=== PATIENT | male | born 1995 | race Caucasian/White ===

== ENCOUNTER 2022-08-01 11:58 | Emergency (ER) | payer OTHER ==
[~2022-08-01] VITALS: Ht 180.3 cm; Wt 59.0 kg
--- NOTE | 2022-08-01 12:26 | ED Lower Extremity ---
General Chief Complaint: Lower Extremity Stated Complaint: LT KNEE INJ Source: patient History of Present Illness Date Seen by Provider: Aug 01, 2022 Time Seen by Provider: 12:02 Initial Comments 27-year-old male presenting under custody with . He had been using methamphetamines and then ran from the [employer] today. He states he has left knee pain and has multiple abrasions to his knee. He reports that his knee was injured with being chased by the [employer] and was trying to escape being arrested. He reports using meth in the last 24 hours. He was to go to [place] to get into rehab this week but chose to use methamphetamines instead of going to rehab. He is now tearful and saying that he feels like he needs to go to rehab or psychiatric hospital to get his medications straightened out and help him get off meth and he thinks this will help him more than going to detention. He denies suicidal or homicidal ideation. Onset: just prior to arrival Severity: severe Pain/Injury Location: left knee (Pain and contusion with abrasions) Method of Injury: fell Modifying Factors: Worse With Movement Allergies and Home Medications Allergies Coded Allergies: No Known Drug Allergies (Unverified , 08/01/22) Patient Home Medication List Home Medication List Reviewed: Yes Review of Systems Constitutional: No chills, No fever EENTM: no symptoms reported Respiratory: no symptoms reported Cardiovascular: no symptoms reported Gastrointestinal: no symptoms reported Genitourinary: no symptoms reported Musculoskeletal: see HPI, joint pain (Left knee pain since falling on it while running from law enforcement) Skin: see HPI Psychiatric/Neurological: Anxiety Past Uudkvcj-Obtago-Fanbxm Hx Patient Social History Tobacco Use?: Yes Smoking Status: Current Everyday Smoker Substance use?: Yes Substance type: Methamphetamine Additional substance use comme: Last reported use 07/31/22 Substance frequency: Couple times a week Alcohol Use?: No Pt feels they are or have been: No Immunizations Up To Date First/Initial COVID19 Vaccinat: Yes COVID19 Vaccine [employer]: [employer] Past Medical History Surgery/Hospitalization HX: Substance abuse; Bipolar; ADHD; ODD Physical Exam Vital Signs Vital Signs - First Documented 08/01/22 12:02 Temp 36.4 Pulse 122 Resp 14 B/P (MAP) 126/78 (94) Pulse Ox 97 O2 Delivery Room Air Capillary Refill : Height, Weight, BMI Height: '" Weight: lbs. oz. kg; BMI Method: General Appearance: other (Patient is disheveled and starts to cry when he talks about needing to be admitted to [facility] rather than go to detention.) HEENT: PERRL/EOMI, pharynx normal Neck: non-tender, full range of motion, supple, normal inspection Cardiovascular: normal peripheral pulses, regular rate, rhythm Respiratory: chest non-tender, lungs clear, normal breath sounds Gastrointestinal: normal bowel sounds, non tender, soft, no pulsatile mass Knees: left knee pain, left knee soft tissue tenderness, left knee other (Multiple abrasions and 1 flap laceration to the left knee. He complains of pain with palpation and movement of the knee. Knee joint itself is stable without laxity or crepitus) Neurologic/Tendon: normal sensation, normal motor functions, normal tendon functions Neurologic/Psychiatric: keysmith II-XII nml as tested, alert, oriented x 3 Skin: warm/dry, other (Multiple superficial abrasions to the left knee and 1 flap laceration that is a total of 1.8 cm) Procedures/Interventions Wound Location: Lower Extremities (Left knee) Wound Length (cm): 1.8 Wound's Depth, Shape: flap, sub Q Wound Explored: contaminated Irrigated w/ Saline (ccs): 100 Betadine Prep?: No (Used chlorhexidine scrub soap) Anesthesia: 1% Lidocaine Volume Anesthetic (ccs): 4 Suture: Ethlion Suture Size: 4-0 Number of Sutures: 4 Layer Closure?: 1 Sterile Dressing Applied?: Yes Progress After obtaining verbal consent from the patient the wound was cleaned with chlorhexidine scrub soap and water. 4 mL of 1% plain lidocaine were infiltrated for anesthetic effect. The wound was further scrubbed to evaluate for foreign bodies in the wound. No foreign bodies were seen. Wound edges were then approximated using 4-0 Ethilon. A total of 4 simple interrupted stitches were placed and the wound edges were well approximated. Counseled on follow-up and return precautions and advised to have the stitches out in 10 to 14 days. Progress/Results/Core Measures Results/Orders My Orders Orders - KHADIJAH GARCIA MD Dipht,Candace(Acell),Tet Adult (Boostrix (08/01/22 12:30) Knee 3 View Left (08/01/22 12:22) Suture Set At Bedside (08/01/22 12:22) Ibuprofen Tablet (Motrin Tablet) (08/01/22 12:57) Wound Dressing-Ed (08/01/22 12:57) Medications Given in ED Current Medications Medications Dose Ordered Sig/Mago Route Start Time Stop Time Status Last Admin Dose Admin Diphtheria/ Tetanus/Acell Pertussis 0.5 ml ONCE ONCE IM 08/01/22 12:30 08/01/22 12:31 DC 08/01/22 13:06 0.5 ML Vital Signs/I&O 08/01/22 08/01/22 12:02 13:12 Temp 36.4 36.4 Pulse 122 122 Resp 14 14 B/P (MAP) 126/78 (94) 126/78 Pulse Ox 97 97 O2 Delivery Room Air Room Air Progress Progress Note #1: Progress Note X-ray of the left knee was ordered since he was complaining of pain. Update his tetanus booster. Cleaning and repair the flap laceration to his left knee Progress Note #2: Progress Note X-rays did not demonstrate any acute fracture or dislocation. The laceration was repaired using 4-0 Ethilon a total of 4 simple interrupted stitches. His tetanus booster was updated. Advised to follow-up with mental health through the detention and law enforcement to see about getting help with his medications and rehab from [facility]. Diagnostic Imaging Diagonstic Imaging: Xray Plain Films/CT/US/NM/MRI: knee Comments NAME: [facility] REC#: [id number] PT STATUS: REG ER : 1995 PHYSICIAN: KHADIJAH GARCIA MD ADMIT DATE: 08/01/22/ER FS Signed Date of Exam:08/01/22 KNEE 3 VIEW LEFT Indication: Left knee pain 3 views of the left knee show no fracture, dislocation or pathologic effusion. IMPRESSION: Negative left knee Dictated by: Dictated on workstation # [id number] Dict: 08/01/22 1246 Trans: 08/01/22 1246 TCB [id number] Interpreted by: TYRA MARTINEZ MD Electronically signed by: TYRA MARTINEZ MD 08/01/22 1246 Reviewed: Reviewed by Me Departure Impression Primary Impression: Laceration without foreign body, left knee, initial encounter Additional Impressions: Contusion of left knee, initial encounter Abrasion, left knee, initial encounter Methamphetamine abuse Disposition: HOME, SELF-CARE Condition: Stable Departure-Patient Inst. Decision time for Depature: 12:56 Referrals: [facility] (PCP/Family) Primary Care Physician Patient Instructions: Laceration Repair With Stitches ED, Abrasions ED, Drug Abuse Treatment Add. Discharge Instructions: Medically clear and stable to go with law enforcement to detention. Keep wound clean and dry for the first 24 hours. After that you may apply antibiotic ointment once or twice a day as needed to help prevent infection. The stitches need to be removed in 10 to 14 days. Consider taking Ibuprofen 600 mg every 8 hours as needed for pain/inflammation. You could also consider taking acetaminophen 650 mg every 6 hours as needed for pain. Follow-up with mental health about your drug rehab and medications you should be taking. Avoid further use of methamphetamines or other illicit drugs All discharge instructions reviewed with patient and/or family. Voiced understanding. KHADIJAH GARCIA MD Aug 01, 2022 12:25
[2022-08-01] MEDS ORDERED: TETANUS,DIPTH,PERTUSS P/F (BOOSTRIX) 0.5 ML VIAL IM ONE (12:30)
--- NOTE | 2022-08-01 12:48 | Diagnostic Imaging Report ---
Indication: Left knee pain 3 views of the left knee show no fracture, dislocation or pathologic effusion. IMPRESSION: Negative left knee Dictated by: Dictated on workstation # [id number]
[2022-08-01] MEDS ORDERED: IBUPROFEN 800 MG (MOTRIN) TAB PO STA (12:57)
[2022-08-01 13:12] VITALS: BP 126/78
== END 2022-08-01 13:09 | disposition home or self-care (01) ==
LOC: EDUNIT# 11:58 → ER FS 12:01
DX: S81.012A Laceration without foreign body, left knee, initial encounter (principal); F15.10 Other stimulant abuse, uncomplicated; F17.200 Nicotine dependence, unspecified, uncomplicated; Z23 Encounter for immunization; Z28.311 Partially vaccinated for COVID-19; W19.XXXA Unspecified fall, initial encounter; Y93.01 Activity, walking, marching and hiking
CPT/HCPCS: 73562; 90715

== ENCOUNTER 2023-05-24 23:11 | Emergency (ER) | payer OTHER ==
[~2023-05-24] VITALS: Ht 180 cm; Wt 64.9 kg
[~2023-05-24 23:11] MED LIST: ACHD5005 PO; SULF1TAB38 PO
[2023-05-24 23:15] VITALS: BP 148/91
[2023-05-24] MEDS ORDERED: HYDROcodone/APAP 5 MG/325 MG (LORTAB) TAB PO ONE (23:30)
[2023-05-24 23:55] LABS: BASOPHILS # (AUTO) 0.1 10^3/uL (0.0-0.1); BASOPHILS % (AUTO) 1 % (0-10); EOSINOPHILS # (AUTO) 0.3 10^3/uL (0.0-0.3); EOSINOPHILS % (AUTO) 3 % (0-10); HEMATOCRIT 43 % (40-54); HEMOGLOBIN 14.8 g/dL (13.3-17.7); LYMPHOCYTES # (AUTO) 4.2 10^3/uL (1.0-4.0); LYMPHOCYTES % (AUTO) 38 % (12-44); MEAN CORPUSCULAR HEMOGLOBIN 31 pg (25-34); MEAN CORPUSCULAR HGB CONC 34 g/dL (32-36); MEAN CORPUSCULAR VOLUME 91 fL (80-99); MEAN PLATELET VOLUME 8.7 fL (9.0-12.2); MONOCYTES # (AUTO) 0.8 10^3/uL (0.0-1.0); MONOCYTES % (AUTO) 7 % (0-12); NEUTROPHILS # (AUTO) 5.7 10^3/uL (1.8-7.8); NEUTROPHILS % (AUTO) 51 % (42-75); PLATELET COUNT 450 10^3/uL (130-400); WHITE BLOOD COUNT 11.1 10^3/uL (4.3-11.0)
--- NOTE | 2023-05-25 | ED Upper Extremity ---
General Chief Complaint: Skin/Wound Problems Stated Complaint: WOUND CHECK Source: patient, old records Exam Limitations: no limitations History of Present Illness Date Seen by Provider: May 24, 2023 Time Seen by Provider: 23:16 Initial Comments 27-year-old male [id number] coming in for wound check. The patient was admitted to the hospital on May 17 for an abscess and cellulitis of the left index finger. The patient believes that it was a brown recluse spider bite. The wound was debrided in the operating room and he was on IV antibiotics. He was discharged on May 21. The wound grew out MRSA sensitive to Bactrim. Fortunately, he was arrested after discharge and was unable to make his follow- up appointments for his wound check that was supposed to be yesterday. He did not immediately get his antibiotics, took his first dose just prior to arrival here today. He is denying any significant changes in his pain, no new fever. Allergies and Home Medications Allergies Coded Allergies: No Known Drug Allergies (Unverified , 08/01/22) Patient Home Medication List Home Medication List Reviewed: Yes Hydrocodone/Acetaminophen (Hydrocodone-Acetamin 5-325 mg) 5 Mg-325 Mg Tablet, 1 EA PO Q8H PRN for PAIN-SEVERE (8-10) Prescribed by: DARRYL SIFUENTES on 05/21/23 1027 Sulfamethoxazole/Trimethoprim (Bactrim Ds Tablet) 1 Each Tablet, 1 EACH PO BID Prescribed by: DARRYL SIFUENTES on 05/21/23 1026 Review of Systems Constitutional: No fever EENTM: no symptoms reported Respiratory: no symptoms reported Cardiovascular: no symptoms reported Gastrointestinal: no symptoms reported Genitourinary: no symptoms reported Musculoskeletal: see HPI Past Hzumgms-Ucvdwd-Glvuia Hx Immunizations Up To Date First/Initial COVID19 Vaccinat: Yes Past Medical History Surgery/Hospitalization HX: Substance abuse; Bipolar; ADHD; ODD Surgeries: No Respiratory: No Currently Using CPAP: No Currently Using BIPAP: No Cardiac: No Neurological: No Genitourinary: No Gastrointestinal: No Musculoskeletal: No Endocrine: No HEENT: No Cancer: No ADD/ADHD, Bipolar Integumentary: No Blood Disorders: No Family Medical History No Pertinent Family Hx Physical Exam Vital Signs Capillary Refill : Height, Weight, BMI Height: '" Weight: lbs. oz. kg; 19.25 BMI Method: General Appearance: WD/WN, no apparent distress HEENT: PERRL/EOMI, normal ENT inspection, pharynx normal Neck: non-tender, full range of motion, supple, normal inspection Cardiovascular: regular rate, rhythm, no edema, no murmur Respiratory: chest non-tender, lungs clear, normal breath sounds, no respiratory distress, no accessory muscle use Gastrointestinal: normal bowel sounds, non tender, soft; No distended, No guarding, No rebound Back: normal inspection, no CVA tenderness Wrist: Yes normal inspection, Yes non-tender, Yes no evidence of injury, Yes normal ROM Hand: Left (Left index finger with open wound postsurgery, granulation tissue and blood at the base, the distal portion of the wound has purulent drainage which I was able to express from the open portion until it stopped draining.) Neurologic/Psychiatric: no motor/sensory deficits, alert, normal mood/affect Skin: normal color, warm/dry Procedures/Interventions Suture Size: 4-0 Progress/Results/Core Measures Results/Orders Lab Results Laboratory Tests Test 05/24/23 23:40 Range/Units White Blood Count 11.1 H 4.3-11.0 10^3/uL Red Blood Count 4.78 4.30-5.52 10^6/uL Hemoglobin 14.8 13.3-17.7 g/dL Hematocrit 43 40-54 % Mean Corpuscular Volume 91 80-99 fL Mean Corpuscular Hemoglobin 31 25-34 pg Mean Corpuscular Hemoglobin Concent 34 32-36 g/dL Red Cell Distribution Width 11.6 10.0-14.5 % Platelet Count 450 H 130-400 10^3/uL Mean Platelet Volume 8.7 L 9.0-12.2 fL Immature Granulocyte % (Auto) 1 % Neutrophils (%) (Auto) 51 42-75 % Lymphocytes (%) (Auto) 38 12-44 % Monocytes (%) (Auto) 7 0-12 % Eosinophils (%) (Auto) 3 0-10 % Basophils (%) (Auto) 1 0-10 % Neutrophils # (Auto) 5.7 1.8-7.8 10^3/uL Lymphocytes # (Auto) 4.2 H 1.0-4.0 10^3/uL Monocytes # (Auto) 0.8 0.0-1.0 10^3/uL Eosinophils # (Auto) 0.3 0.0-0.3 10^3/uL Basophils # (Auto) 0.1 0.0-0.1 10^3/uL Immature Granulocyte # (Auto) 0.1 0.0-0.1 10^3/uL Erythrocyte Sedimentation Rate 9 0-15 MM/HR Sodium Level 139 135-145 MMOL/L Potassium Level 3.6 3.6-5.0 MMOL/L Chloride Level 101 98-107 MMOL/L Carbon Dioxide Level 24 21-32 MMOL/L Anion Gap 14 5-14 MMOL/L Blood Urea Nitrogen 11 7-18 MG/DL Creatinine 0.76 0.60-1.30 MG/DL Estimat Glomerular Filtration Rate 128 BUN/Creatinine Ratio 14 Glucose Level 104 70-105 MG/DL Calcium Level 9.7 8.5-10.1 MG/DL Corrected Calcium 9.3 8.5-10.1 MG/DL Total Bilirubin < 0.2 0.1-1.0 MG/DL Aspartate Amino Transf (AST/SGOT) 18 5-34 U/L Alanine Aminotransferase (ALT/SGPT) 23 0-55 U/L Alkaline Phosphatase 95 40-136 U/L C-Reactive Protein < 0.30 <0.50 MG/DL Total Protein 7.2 6.4-8.2 GM/DL Albumin 4.5 3.2-4.5 GM/DL My Orders Orders - CHIKA MO MD Cbc With Automated Diff (05/24/23 23:22) Comprehensive Metabolic Panel (05/24/23 23:22) Erythrocyte Sedimentation Rate (05/24/23 23:22) Crp Fs (05/24/23 23:22) Finger(S) (05/24/23 23:22) Hydrocodone/Apap 5/325 Tablet (Lortab 5 (05/24/23 23:30) Medications Given in ED Current Medications Medications Dose Ordered Sig/Mago Route Start Time Stop Time Status Last Admin Dose Admin Acetaminophen/ Hydrocodone Bitart 1 ea ONCE ONCE PO 05/24/23 23:30 05/24/23 23:31 DC 05/24/23 23:43 1 EA Progress Progress Note : Progress Note 27-year-old male with above history coming in for a wound check. ABCs were intact and vitals are stable on presentation. Physical exam with granulation tissue and a bleeding wound which most of it appears healthy. The distal portion does have some purulent drainage that I was able to express after I took the dressing off. The wound was then cleaned, new wet-to-dry dressing placed. Given that the patient was supposed to have dressing changes, and these were missed, that is likely why it was building back up. He also was not on the appropriate antibiotics, is taking them now. X-ray of the finger ordered and interpreted by me showing no changes to the bone that would be concerning for osteomyelitis. An IV was placed and basic labs were obtained and were signific ant for a downtrending white blood cell count, downtrending CRP, downtrending ESR, normal creatinine which were all reassuring. Given that he is afebrile, nontoxic-appearing, clinically has improved labs, and the wound is open and able to drain on its own with him being on appropriate antibiotics now based on wound cultures that I have reviewed from his hospital admission, I believe he is stable for discharge with outpatient follow-up. I do think it would still be a good idea for his general practitioner to do a hand surgery referral as an outpatient. I discussed with the patient that if this is a brown recluse spider bite then un fortunately the wound has not likely fully declared itself, and it could continue to spread. I discussed that he will need a debridement after this has completed its process. Departure Impression Primary Impression: Encounter for postoperative wound check Additional Impression: Wound infection Disposition: [address]/[employer] Condition: Stable Departure-Patient Inst. Decision time for Depature: 00:25 Referrals: [facility] (PCP/Family) Primary Care Physician Patient Instructions: Wound Care ED Add. Discharge Instructions: The wound did appear infected again since it was not allowed to drain properly. We were able to drain the infection out in the ER. Your labs all look much better compared to when you were in the hospital since the wound is open and abl e to drain. The dressing needs to be changed daily with a wet-to-dry dressing. Be sure to be taking the antibiotics. Continue to take ibuprofen or Tylenol as needed for pain. Please follow-up with your regular doctor as soon as possible this week as you need a referral to a hand surgeon for continued management. Come back to the ER immediately if redness starts spreading up your arm or you develop fever again. CHIKA MO MD May 25, 2023 00:00
[2023-05-25 00:12] LABS: ERYTHROCYTE SEDIMENTATION RATE 9 MM/HR (0-15)
[2023-05-25 00:14] LABS: ALANINE AMINOTRANSFERASE 23 U/L (0-55); ALBUMIN 4.5 GM/DL (3.2-4.5); ALKALINE PHOSPHATASE 95 U/L (40-136); BILIRUBIN,TOTAL < 0.2 MG/DL (0.1-1.0); BUN/CREATININE RATIO 14; CALCIUM 9.7 MG/DL (8.5-10.1); CARBON DIOXIDE 24 MMOL/L (21-32); CHLORIDE 101 MMOL/L (98-107); CREATININE SERUM 0.76 MG/DL (0.60-1.30); GFR ESTIMATED 128; GLUCOSE 104 MG/DL (70-105); POTASSIUM 3.6 MMOL/L (3.6-5.0); SODIUM 139 MMOL/L (135-145); TOTAL PROTEIN 7.2 GM/DL (6.4-8.2)
--- NOTE | 2023-05-25 07:15 | Diagnostic Imaging Report ---
HISTORY: Left index finger open wound. TECHNIQUE: Frontal view of the hand. Frontal, oblique, and lateral views of the left index finger. COMPARISON: 05/17/2023. FINDINGS: No acute fracture is seen in the left index finger. Alignment is normal. Joint spaces are preserved. No cortical erosion or periosteal reaction is seen. There is a soft tissue defect at the dorsal aspect of the left index finger. There is a 1 mm hyperdensity in the soft tissues of the dorsal ulnar aspect of the shaft of the left proximal phalanx. No other radiopaque foreign body is seen. IMPRESSION: 1. Soft tissue defects of the dorsal left index finger with no acute osseous abnormality seen. 2. Redemonstrated punctate hyperdensity in the soft tissues of the left index finger which could be a foreign body. Dictated by: Dictated on workstation # [id number]
== END 2023-05-25 00:35 ==
LOC: EDUNIT# 23:11 → ER FS 23:13
DX: T81.49XA Infection following a procedure, other surgical site, initial encounter (principal); L03.012 Cellulitis of left finger; L02.512 Cutaneous abscess of left hand; Z28.311 Partially vaccinated for COVID-19
CPT/HCPCS: 36415; 73140; 80053; 85025; 85652; 86141